=== PATIENT | female | born 1990 | race Caucasian/White ===

== ENCOUNTER 2017-09-25 11:41 | Inpatient (IN) | payer MEDICAID ==
[~2017-09-25] VITALS: Ht 167.6 cm; Wt 66.7 kg
[2017-09-25 11:44] VITALS: Ht 167.6 cm; Wt 66.7 kg
[2017-09-25 13:25] LABS: BASOPHIL % 0.4 % (0-2); PLATELET COUNT 262 x10^3mcL (130-400); RED CELL DISTRIBUTION WIDTH 14.1 % (11.5-14.5)
[2017-09-25 13:44] LABS: CALCIUM 9.1 mg/dL (8.5-10.1); CARBON DIOXIDE 25.3 mmol/L (21-32); CHLORIDE SERUM 103 mmol/L (98-107); CREATININE SERUM 0.6 mg/dL (0.6-1.0); GFR1 > 60 mL/min; GLUCOSE SERUM 90 mg/dL (74-106); POTASSIUM SERUM 3.7 mmol/L (3.5-5.1); SODIUM SERUM 138 mmol/L (136-145)
[2017-09-25 13:49] LABS: ALBUMIN 3.8 g/dL (3.4-5.0); ALKALINE PHOSPHATASE 57 U/L (46-116); ALT/SGPT 23 U/L (14-59); AMYLASE 57 U/L (25-115); AST/SGOT 17 U/L (15-37); BILIRUBIN TOTAL 0.3 mg/dL (0.20-1.00); LIPASE 105 IU/L (73-393); TOTAL PROTEIN, SERUM 7.6 g/dL (6.4-8.2)
[2017-09-25 16:24] LABS: CHOLESTEROL/HDL RATIO 3.4; MAGNESIUM 1.8 mg/dL (1.8-2.4)
[2017-09-25 16:31] LABS: T3 TOTAL 1.31 ng/mL
[2017-09-25 16:33] VITALS: BP 118/68
[2017-09-25 16:50] LABS: FREE T4 1.03 ng/dL (0.76-1.46); T4(THYROXINE) 8.5 ug/dL (4.7-13.3)
[2017-09-25 17:46] LABS: UA SPECIFIC GRAVITY 1.015 (1.005-1.035); microscopic required? YES; urine erythrocyte 1+ (NEGATIVE)
[2017-09-25 17:57] LABS: AMPHETAMINE QUAL UR NONE DETECTED (NEG <=1000)
[2017-09-25 21:46] VITALS: BP 106/58
[2017-09-26 06:10] VITALS: BP 99/62
[2017-09-26 08:21] LABS: BASOPHIL % 0.3 % (0-2); PLATELET COUNT 224 x10^3mcL (130-400); RED CELL DISTRIBUTION WIDTH 13.6 % (11.5-14.5)
[2017-09-26 08:27] LABS: CALCIUM 8.3 mg/dL (8.5-10.1); CHLORIDE SERUM 105 mmol/L (98-107); CREATININE SERUM 0.7 mg/dL (0.6-1.0); GFR1 > 60 mL/min; GLUCOSE SERUM 74 mg/dL (74-106); POTASSIUM SERUM 3.7 mmol/L (3.5-5.1); SODIUM SERUM 140 mmol/L (136-145)
[2017-09-26 10:00] VITALS: BP 99/56
[2017-09-26 12:45] VITALS: BP 108/60
[2017-09-26 18:10] VITALS: BP 106/69
[2017-09-26 21:26] VITALS: BP 117/63
[2017-09-27 06:26] VITALS: BP 98/54
[2017-09-27 06:41] LABS: BASOPHIL % 0.3 % (0-2); PLATELET COUNT 224 x10^3mcL (130-400); RED CELL DISTRIBUTION WIDTH 14.1 % (11.5-14.5)
[2017-09-27 06:54] LABS: CALCIUM 8.3 mg/dL (8.5-10.1); CARBON DIOXIDE 23.5 mmol/L (21-32); CHLORIDE SERUM 107 mmol/L (98-107); CREATININE SERUM 0.6 mg/dL (0.6-1.0); GFR1 > 60 mL/min; GLUCOSE SERUM 83 mg/dL (74-106); POTASSIUM SERUM 3.7 mmol/L (3.5-5.1); SODIUM SERUM 141 mmol/L (136-145)
[2017-09-27 10:07] VITALS: BP 106/60
[2017-09-27 14:40] VITALS: BP 118/84
[2017-09-27 20:26] VITALS: BP 112/68
[2017-09-28 05:53] VITALS: BP 105/50
[2017-09-28 05:59] VITALS: BP 102/71
[2017-09-28 06:41] LABS: CALCIUM 8.5 mg/dL (8.5-10.1); CARBON DIOXIDE 25.8 mmol/L (21-32); CHLORIDE SERUM 104 mmol/L (98-107); CREATININE SERUM 0.6 mg/dL (0.6-1.0); GFR1 > 60 mL/min; GLUCOSE SERUM 96 mg/dL (74-106); SODIUM SERUM 139 mmol/L (136-145)
[2017-09-28 06:51] LABS: BASOPHIL % 0.1 % (0-2); PLATELET COUNT 217 x10^3mcL (130-400); RED CELL DISTRIBUTION WIDTH 13.8 % (11.5-14.5)
[2017-09-28 09:47] VITALS: BP 105/58
[2017-09-28 13:50] VITALS: BP 115/69
[2017-09-28 17:57] VITALS: BP 111/72
[2017-09-28 19:30] VITALS: BP 110/70
[2017-09-29 05:40] VITALS: BP 109/69
[2017-09-29 06:52] LABS: CARBON DIOXIDE 26.7 mmol/L (21-32); CHLORIDE SERUM 105 mmol/L (98-107); CREATININE SERUM 0.6 mg/dL (0.6-1.0); GFR1 > 60 mL/min; GLUCOSE SERUM 91 mg/dL (74-106); POTASSIUM SERUM 3.7 mmol/L (3.5-5.1); SODIUM SERUM 142 mmol/L (136-145)
[2017-09-29 08:28] LABS: BASOPHIL % 0.3 % (0-2); PLATELET COUNT 198 x10^3mcL (130-400); RED CELL DISTRIBUTION WIDTH 14.1 % (11.5-14.5)
[2017-09-29 09:05] VITALS: BP 111/64
[2017-09-29 13:14] VITALS: BP 120/75
[2017-09-29 16:43] VITALS: BP 120/68
[2017-09-29 20:37] VITALS: BP 98/62
[2017-09-30 06:33] VITALS: BP 95/64
[2017-09-30 06:42] LABS: BASOPHIL % 0.3 % (0-2); PLATELET COUNT 211 x10^3mcL (130-400); RED CELL DISTRIBUTION WIDTH 13.8 % (11.5-14.5)
[2017-09-30 06:56] LABS: CALCIUM 8.3 mg/dL (8.5-10.1); CARBON DIOXIDE 27.9 mmol/L (21-32); CHLORIDE SERUM 102 mmol/L (98-107); CREATININE SERUM 0.6 mg/dL (0.6-1.0); GFR1 > 60 mL/min; GLUCOSE SERUM 87 mg/dL (74-106); POTASSIUM SERUM 3.7 mmol/L (3.5-5.1); SODIUM SERUM 139 mmol/L (136-145)
[2017-09-30 08:45] VITALS: BP 116/79
[2017-09-30 13:10] VITALS: BP 119/75
[2017-09-30 17:22] VITALS: BP 106/57
[2017-09-30 21:06] VITALS: BP 116/68
[2017-10-01 05:50] VITALS: BP 112/63
[2017-10-01 06:32] LABS: CALCIUM 8.3 mg/dL (8.5-10.1); CARBON DIOXIDE 26.8 mmol/L (21-32); CHLORIDE SERUM 103 mmol/L (98-107); CREATININE SERUM 0.7 mg/dL (0.6-1.0); GFR1 > 60 mL/min; GLUCOSE SERUM 93 mg/dL (74-106); POTASSIUM SERUM 3.9 mmol/L (3.5-5.1); SODIUM SERUM 140 mmol/L (136-145)
[2017-10-01 06:34] LABS: BASOPHIL % 0.4 % (0-2); PLATELET COUNT 217 x10^3mcL (130-400); RED CELL DISTRIBUTION WIDTH 13.8 % (11.5-14.5)
[2017-10-01 08:00] VITALS: BP 112/70
[2017-10-01 09:23] VITALS: BP 108/68
[2017-10-01] MEDS ORDERED: KEFLEX500 M1 PO (12:55)
[2017-10-01] MEDS ORDERED: MOT800 PO (12:56)
[2017-10-01] MEDS ORDERED: BD LACTINEX1.4 MG PO (12:56)
[2017-10-01] MEDS ORDERED: FERROUS SULFAT325 M2 PO (13:09)
[2017-10-01 13:21] VITALS: BP 108/68
== END 2017-10-01 15:40 | disposition home or self-care (01) | DRG 513 ==
LOC: ED 11:41 → DU 15:23 → MU 09-30 18:47
PROVIDERS: Emergency Medicine; Family Medicine Sports Medicine; Obstetrics & Gynecology
PROC: 0UB20ZZ Excision of Bilateral Ovaries, Open Approach (ICD-10-PCS; principal; 2017-09-27 12:00)
DX: N83.201 Unspecified ovarian cyst, right side (principal); E83.51 Hypocalcemia; D62 Acute posthemorrhagic anemia; E78.5 Hyperlipidemia, unspecified; D64.9 Anemia, unspecified; F41.1 Generalized anxiety disorder; R31.9 Hematuria, unspecified; N83.202 Unspecified ovarian cyst, left side; Z68.23 Body mass index [BMI] 23.0-23.9, adult
CPT/HCPCS: 83880; 84439; 94150; J0330; J0690; J0696; J1885; J1956; J2250; J2270; J2550; J2704; J2710; J3010; J3490; J7030; J7120; Q0092; Q0162